=== PATIENT | female | born 1980 | race Caucasian/White ===

== ENCOUNTER 2016-12-12 20:04 | Emergency (ER) | payer MEDICAID ==
[~2016-12-12] VITALS: Ht 160 cm; Wt 150.5 kg
[~2016-12-12 20:04] MED LIST: ALPR0.25 PO; ALPR0.254 PO; AMOX1TAB64 PO; CARAFATE PO; FLUT15.88 NAS; FLUTICASONE INH; HYDR-3240 PO; HYDR-882 PO; HYDR473S51 PO; LISI-170 PO; LISI40TA PO; OMEG1CAP6 PO; OMEP40CA6 PO; ONDA4TAB10 PO; ONDA4TAB7 PO; OXYC-302 PO; POLY17PO5 PO; PROM12.553 RC; PROM25TA10 PO; SERT100T5 PO; SULF1TAB24 PO; SUMA100T4 PO; TOPI100T24 PO; TOPI100T94 PO; TRAM50TA2 PO; TRAZ300T2 PO; VENL150C6 PO; ZOLP5TAB6 PO
[2016-12-12] MEDS ORDERED: SODIUM CHLORIDE FLUSH 10ML SYR IVF ONE (20:30)
[2016-12-12] MEDS ORDERED: METOCLOPRAMIDE 5 MG/ML, 2ML IVPush ONE (20:30)
[2016-12-12] MEDS ORDERED: SODIUM CHLORIDE 0.9% 1,000ML IVBOLUS ONE (20:30)
[2016-12-12] MEDS ORDERED: DIPHENHYDRAMINE 50 MG/ML, 1ML IVPush ONE ×3 (20:30→21:30)
[2016-12-12] MEDS ORDERED: KETOROLAC 30 MG/1 ML IVPush ONE (20:30)
[2016-12-12 20:45] LABS: HEMOGLOBIN 13.7 g/dL (11.7-16.4)
[2016-12-12] MEDS ORDERED: DIPHENHYDRAMINE 50 MG/ML, 1ML ONE (20:49)
[2016-12-12] MEDS ORDERED: KETOROLAC 30 MG/1 ML ONE (20:49)
[2016-12-12] MEDS ORDERED: METOCLOPRAMIDE 5 MG/ML, 2ML ONE (20:49)
[2016-12-12 21:01] LABS: BLOOD UREA NITROGEN 7 mg/dL (7-18)
[2016-12-12 22:47] VITALS: BP 127/78
== END 2016-12-12 22:49 | disposition home or self-care (01) ==
LOC: ED 22:15
DX: G43.909 Migraine, unspecified, not intractable, without status migrainosus (principal); E78.5 Hyperlipidemia, unspecified; E66.01 Morbid (severe) obesity due to excess calories; K21.9 Gastro-esophageal reflux disease without esophagitis; I10 Essential (primary) hypertension; Z90.49 Acquired absence of other specified parts of digestive tract; Z87.440 Personal history of urinary (tract) infections; Z90.710 Acquired absence of both cervix and uterus; Z98.51 Tubal ligation status
CPT/HCPCS: 36415; 80048; 82040; 85025; 96361; 96374; 96375; 99284; J1200; J1885; J2765; J7030

== ENCOUNTER 2017-02-15 15:15 | Emergency (ER) | payer MEDICAID ==
[~2017-02-15] VITALS: Ht 160 cm; Wt 148.9 kg
[2017-02-15 15:17] VITALS: BP 136/88
[2017-02-15] MEDS ORDERED: LIDOCAINE 1%, 20ML ONE (16:15)
[2017-02-15] MEDS ORDERED: LIDOCAINE 1%, 20ML SQ ONE (16:30)
== END 2017-02-15 17:11 | disposition home or self-care (01) ==
LOC: ED 15:49
DX: L02.611 Cutaneous abscess of right foot (principal); S90.851A Superficial foreign body, right foot, initial encounter; I10 Essential (primary) hypertension; Z90.49 Acquired absence of other specified parts of digestive tract; Z90.710 Acquired absence of both cervix and uterus; Y92.481 Parking lot as the place of occurrence of the external cause; G43.909 Migraine, unspecified, not intractable, without status migrainosus; E78.5 Hyperlipidemia, unspecified; X58.XXXA Exposure to other specified factors, initial encounter; Y93.89 Activity, other specified; Y99.8 Other external cause status; Y92.89 Other specified places as the place of occurrence of the external cause; Z90.89 Acquired absence of other organs
CPT/HCPCS: 10120

== ENCOUNTER 2017-02-28 15:37 | Emergency (ER) | payer MEDICAID ==
[~2017-02-28] VITALS: Ht 160 cm; Wt 151.0 kg
[2017-02-28 15:40] VITALS: BP 143/106
== END 2017-02-28 17:08 | disposition home or self-care (01) ==
LOC: ED 17:02
DX: G89.11 Acute pain due to trauma (principal); M79.671 Pain in right foot; E66.01 Morbid (severe) obesity due to excess calories; E78.5 Hyperlipidemia, unspecified; M54.12 Radiculopathy, cervical region; I10 Essential (primary) hypertension; Z90.49 Acquired absence of other specified parts of digestive tract; Z90.710 Acquired absence of both cervix and uterus; Z98.51 Tubal ligation status

== ENCOUNTER 2017-11-19 17:51 | Emergency (ER) | payer MEDICAID ==
[~2017-11-19] VITALS: Ht 162.6 cm; Wt 160.8 kg
[~2017-11-19 17:51] MED LIST changes: +TOPI100T8 PO; -TOPI100T94 PO
[2017-11-19 18:50] LABS: BASOPHILS # (AUTO) 0.05 x10^3/uL (0-0.1); BASOPHILS % (AUTO) 1 % (0-1); EOSINOPHILS # (AUTO) 0.03 x10^3/uL (0-0.4); EOSINOPHILS % (AUTO) 0 % (1-7); LYMPHOCYTES # (AUTO) 1.81 x10^3/uL (1-3.4); LYMPHOCYTES % (AUTO) 16 % (22-44); MD NO; MEAN CORPUSCULAR HEMOGLOBIN 30.2 pg (27.0-34.8); MEAN CORPUSCULAR HGB CONC 33.8 g/dL (32.4-35.8); MEAN CORPUSCULAR VOLUME 89.4 fL (80-100); MEAN PLATELET VOLUME 9.3 fL (7.4-10.4); MONOCYTES # (AUTO) 0.54 x10^3/uL (0.2-0.8); MONOCYTES % (AUTO) 5 % (2-9); NEUTROPHILS # (AUTO) 8.56 x10^3/uL (1.8-6.8); NEUTROPHILS % (AUTO) 78 % (42-75); PLATELET COUNT 226 x10^3/uL (130-400); RED BLOOD COUNT 4.36 x10^6/uL (3.82-5.3); RED CELL DISTRIBUTION WIDTH 13.9 % (9.6-15.2)
[2017-11-19 18:58] LABS: ALANINE AMINOTRANSFERASE 30 U/L (12-78); ALBUMIN 3.6 g/dL (3.4-5.0); ANION GAP 5 mmol/L (5-15); CALCIUM 8.4 mg/dL (8.5-10.1); CHLORIDE 104 mmol/L (98-107); CREATININE 0.95 mg/dL (0.55-1.02)
[2017-11-19 19:00] LABS: ALKALINE PHOSPHATASE 94 U/L (45-117); BILIRUBIN,TOTAL 0.4 mg/dL (0.2-1.0); TOTAL PROTEIN 8.4 g/dL (6.4-8.2)
[2017-11-19 20:51] LABS: CULTURE INDICATED? YES; MICROSCOPIC INDICATED
[2017-11-19 21:30] VITALS: BP 139/89
== END 2017-11-19 21:48 | disposition home or self-care (01) ==
LOC: ED 19:40
DX: N30.01 Acute cystitis with hematuria (principal); Z90.710 Acquired absence of both cervix and uterus; Z90.49 Acquired absence of other specified parts of digestive tract; G43.909 Migraine, unspecified, not intractable, without status migrainosus; E66.01 Morbid (severe) obesity due to excess calories; Z68.44 Body mass index [BMI] 60.0-69.9, adult; E78.5 Hyperlipidemia, unspecified; I10 Essential (primary) hypertension; K21.9 Gastro-esophageal reflux disease without esophagitis; K43.9 Ventral hernia without obstruction or gangrene; M54.12 Radiculopathy, cervical region
CPT/HCPCS: 36415; 74176; 80053; 81001; 85025; 87077; 87086; 87186; 99285

== ENCOUNTER → 2018-01-16 | Outpatient (CLI) | payer MEDICAID ==
[~2018-01-16] MED LIST changes: +BUPR-173 PO; +ESZO3TAB28 PO
[2018-01-16 15:01] LABS: ALANINE AMINOTRANSFERASE 33 U/L (12-78); ALBUMIN 3.7 g/dL (3.4-5.0); ANION GAP 7 mmol/L (5-15); CALCIUM 8.9 mg/dL (8.5-10.1); CHLORIDE 104 mmol/L (98-107)
[2018-01-16 15:04] LABS: ALKALINE PHOSPHATASE 84 U/L (45-117); BILIRUBIN,TOTAL 0.5 mg/dL (0.2-1.0); CREATININE 0.98 mg/dL (0.55-1.02); TOTAL PROTEIN 8.4 g/dL (6.4-8.2)
== END | disposition home or self-care (01) ==
LOC: STAR 13:55
PROVIDERS: ATTEND Surgery
DX: Z01.818 Encounter for other preprocedural examination (principal); K43.2 Incisional hernia without obstruction or gangrene
CPT/HCPCS: 36415; 80053

== ENCOUNTER 2018-01-28 08:28 | Day surgery (SDC) | payer MEDICAID ==
[~2018-01-28] VITALS: Ht 162.6 cm; Wt 159.7 kg
[2018-01-28] MEDS ORDERED: LACTATED RINGERS 1,000 ML IV SCH (08:47)
[2018-01-28 08:59] VITALS: BP 102/70
[2018-01-28] MEDS ORDERED: ACETAMINOPHEN 500 MG TABLET PO ONE (09:00)
[2018-01-28] MEDS ORDERED: GABAPENTIN 300 MG CAPSULE PO ONE (09:00)
[2018-01-28] MEDS ORDERED: FAMOTIDINE 20 MG TABLET PO ONE (09:00)
[2018-01-28] MEDS ORDERED: SCOPOLAMINE PATCH, 1.5MG PATCH.TD72 TD ONE (09:00)
[2018-01-28] MEDS ORDERED: ONDANSETRON ODT 8 MG PO ONE (09:00)
[2018-01-28] MEDS ORDERED: OXYcodone IR 5MG TABLET PO ONE (09:00)
[2018-01-28] MEDS ORDERED: MIDAZOLAM 1 MG/ML, 2ML ONE (09:36)
[2018-01-28] MEDS ORDERED: FENTANYL PF 100 MCG/2ML ONE (09:36)
[2018-01-28] MEDS ORDERED: BUPIVACAINE/PF 0.5% ONE (10:00)
[2018-01-28] MEDS ORDERED: EPINEPHRINE 1 MG/ML, 1ML ONE (10:00)
[2018-01-28] MEDS ORDERED: CEFAZOLIN 1,000 MG ONE (10:16)
[2018-01-28] MEDS ORDERED: PROPOFOL 10 MG/ML, 20ML ONE (10:16)
[2018-01-28] MEDS ORDERED: DEXAMETHASONE 4 MG/ML, 1ML ONE (10:16)
[2018-01-28] MEDS ORDERED: ROCURONIUM 10 MG/ML,10ML ONE (10:16)
[2018-01-28] MEDS ORDERED: SUCCINYLCHOLINE 20 MG/ML, 10ML ONE (10:16)
[2018-01-28] MEDS ORDERED: NEOSTIGMINE 1 MG/ML, 10ML ONE (10:16)
[2018-01-28] MEDS ORDERED: GLYCOPYRROLATE 0.2MG/1ML, 5ML ONE (10:16)
[2018-01-28] MEDS ORDERED: EPHEDRINE 50 MG/ML, 1ML IVPush PRN (11:30)
[2018-01-28] MEDS ORDERED: ALBUTEROL SULFATE 2.5 MG/3 ML NPPB PRN (11:30)
[2018-01-28] MEDS ORDERED: DIAZEPAM 5 MG/ML, 2ML IVPush PRN (11:30)
[2018-01-28] MEDS ORDERED: hydrALAzine 20 MG/ML, 1ML IV PRN (11:30)
[2018-01-28] MEDS ORDERED: OXYcodone 5 MG/5 ML ORAL.SOL UDC PO PRN ×2 (11:30→12:00)
[2018-01-28] MEDS ORDERED: HYDROcodone/APAP 7.5-325MG/15ML UDC PO PRN (11:30)
[2018-01-28] MEDS ORDERED: FENTANYL PF 100 MCG/2ML IV PRN (11:30)
[2018-01-28] MEDS ORDERED: MIDAZOLAM 1 MG/ML, 2ML IV PRN (11:30)
[2018-01-28] MEDS ORDERED: MORPHINE SULFATE 4 MG/ML, 1ML IVPush PRN (11:30)
[2018-01-28] MEDS ORDERED: PROMETHAZINE 25 MG/ML, 1ML IV PRN (11:30)
[2018-01-28] MEDS ORDERED: METOPROLOL 1 MG/ML, 5ML IV PRN (11:30)
[2018-01-28] MEDS ORDERED: LABETALOL 5MG/ML, 20ML IV PRN (11:30)
[2018-01-28] MEDS ORDERED: morphine SULFATE 10 MG/ML, 1ML IVPush PRN (12:00)
[2018-01-28] MEDS: MEPERIDINE/PF 25MG/0.5ML IVPush PRN ×2 (12:12→12:38)
[2018-01-28] MEDS ORDERED: MEPERIDINE/PF 25MG/0.5ML ONE (12:16)
[2018-01-28] MEDS ORDERED: OXYcodone 5 MG/5 ML ORAL.SOL UDC ONE ×2 (12:48→17:07)
== END 2018-01-28 17:30 ==
LOC: OUT 08:28
PROVIDERS: ATTEND Surgery
DX: K43.2 Incisional hernia without obstruction or gangrene (principal); K44.9 Diaphragmatic hernia without obstruction or gangrene; I10 Essential (primary) hypertension; E66.9 Obesity, unspecified; Z98.890 Other specified postprocedural states
CPT/HCPCS: 49654; J0171; J0330; J0690; J1100; J2175; J2250; J2704; J2710; J3010; J3490; J7120; Q0162; S2900; C1781

== ENCOUNTER → 2018-05-20 | Outpatient (CLI) | payer MEDICAID ==
[~2018-05-20] MED LIST changes: +AZIT250T PO; +BUPR300T4 PO; +CEFD300C37 PO; +GUAI5SYR PO; +LEVO100T PO; +LEVO100T5 PO; +PROP60TA PO
[2018-05-20 14:02] LABS: ALANINE AMINOTRANSFERASE 37 U/L (12-78); ALBUMIN 3.6 g/dL (3.4-5.0); ANION GAP 6 mmol/L (5-15); CALCIUM 9.1 mg/dL (8.5-10.1); CHLORIDE 108 mmol/L (98-107); CREATININE 0.91 mg/dL (0.55-1.02)
[2018-05-20 14:04] LABS: ALKALINE PHOSPHATASE 79 U/L (45-117); BILIRUBIN,TOTAL 0.2 mg/dL (0.2-1.0)
== END | disposition home or self-care (01) ==
LOC: STAR 12:52
PROVIDERS: ATTEND Obstetrics & Gynecology Female Pelvic Medicine and Reconstructive Surgery
DX: Z01.818 Encounter for other preprocedural examination (principal); N39.3 Stress incontinence (female) (male); N81.10 Cystocele, unspecified; N81.6 Rectocele; R10.2 Pelvic and perineal pain
CPT/HCPCS: 36415; 80053

== ENCOUNTER → 2018-11-30 | Outpatient (CLI) | payer MEDICAID ==
[~2018-11-30] MED LIST changes: +HYDR-3653 PO; -HYDR-882 PO; +SERT100T32 PO; -SERT100T5 PO
== END | disposition home or self-care (01) ==
LOC: RAD 07:45
PROVIDERS: ATTEND Surgery
DX: R10.9 Unspecified abdominal pain (principal); R13.10 Dysphagia, unspecified; R14.0 Abdominal distension (gaseous)
CPT/HCPCS: 74250

== ENCOUNTER 2018-12-20 07:59 | Emergency (ER) | payer MEDICAID ==
[~2018-12-20] VITALS: Ht 162.6 cm; Wt 151.8 kg
[2018-12-20 08:05] VITALS: BP 149/99
[2018-12-20] MEDS ORDERED: KETOROLAC 30 MG/1 ML ONE (08:24)
--- NOTE | 2018-12-20 08:29 | NUR ---
Pt medicated as per emar for 1010 dental pain.
[2018-12-20] MEDS ORDERED: KETOROLAC 30 MG/1 ML IM ONE (08:30)
--- NOTE | 2018-12-20 08:42 | NUR ---
Patient given discharge instructions and they have confirmed that they understand the instructions. Patient ambulatory with steady gait.
== END 2018-12-20 08:49 | disposition home or self-care (01) ==
LOC: ED 08:11
DX: K08.89 Other specified disorders of teeth and supporting structures (principal); K21.9 Gastro-esophageal reflux disease without esophagitis; G43.909 Migraine, unspecified, not intractable, without status migrainosus; I10 Essential (primary) hypertension; E78.5 Hyperlipidemia, unspecified; E66.01 Morbid (severe) obesity due to excess calories; Z68.43 Body mass index [BMI] 50.0-59.9, adult
CPT/HCPCS: 96372; 99283; J1885

== ENCOUNTER 2019-01-15 21:37 | Emergency (ER) | payer MEDICAID ==
[~2019-01-15] VITALS: Ht 162.6 cm; Wt 151.8 kg
[2019-01-15] MEDS ORDERED: ONDANSETRON ODT 8 MG PO STA (22:03)
[2019-01-15 22:38] LABS: BASOPHILS # (AUTO) 0.02 x10^3/uL (0-0.1); BASOPHILS % (AUTO) 0 % (0-1); EOSINOPHILS # (AUTO) 0.07 x10^3/uL (0-0.4); EOSINOPHILS % (AUTO) 1 % (1-7); LYMPHOCYTES # (AUTO) 1.08 x10^3/uL (1-3.4); LYMPHOCYTES % (AUTO) 15 % (22-44); MD NO; MEAN CORPUSCULAR HEMOGLOBIN 30.2 pg (27.0-34.8); MEAN CORPUSCULAR HGB CONC 33.8 g/dL (32.4-35.8); MEAN CORPUSCULAR VOLUME 89.4 fL (80-100); MEAN PLATELET VOLUME 10.3 fL (7.4-10.4); MONOCYTES % (AUTO) 4 % (2-9); NEUTROPHILS # (AUTO) 5.54 x10^3/uL (1.8-6.8); NEUTROPHILS % (AUTO) 79 % (42-75); PLATELET COUNT 206 x10^3/uL (130-400); RED CELL DISTRIBUTION WIDTH 13.1 % (9.6-15.2)
[2019-01-15] MEDS ORDERED: ONDANSETRON ODT 8 MG ONE (22:38)
--- NOTE | 2019-01-15 22:45 | NUR ---
FIRST CONTACT WITH PT. PT C/O N/V ALL DAY, HYAD TEETH PULLED YESTERDAY, UNABLE TO KEEP PAIN MEDS DOWN INSPITE OF NAUSEA MED. PT C/O MOUSE PAIN WELL. BP/SPO2 MONITORS IN PLACE. CALL LIGHT WITHIN REACH. EDMD AT BEDSIDE TO ASSESS AT THIS TIME.
[2019-01-15 22:49] LABS: ALANINE AMINOTRANSFERASE 22 U/L (12-78); ALBUMIN 3.9 g/dL (3.4-5.0); ANION GAP 3 mmol/L (5-15); CALCIUM 8.8 mg/dL (8.5-10.1); CHLORIDE 106 mmol/L (98-107); CREATININE 0.82 mg/dL (0.55-1.02)
--- NOTE | 2019-01-15 22:54 | NUR ---
PT MEDICATED PER EMAR FOR NAUSEA. PT TOLERATED WELL.
[2019-01-15 22:55] LABS: ALKALINE PHOSPHATASE 75 U/L (45-117); BILIRUBIN,TOTAL 0.4 mg/dL (0.2-1.0)
--- NOTE | 2019-01-15 22:59 | NUR ---
PT WAS NOT ABLE TO PROVIDE URINE SAMPLE AT THIS TIME. URINE CUP AT BEDSIDE.
[2019-01-15] MEDS ORDERED: PROMETHAZINE 25 MG/ML, 1ML IM PRN (23:00)
[2019-01-15] MEDS ORDERED: OXYcodone/APAP 5/325MG TABLET PO ONE (23:00)
[2019-01-15] MEDS ORDERED: OXYcodone/APAP 5/325MG TABLET ONE (23:11)
--- NOTE | 2019-01-15 23:14 | NUR ---
PT MEDICATED PER EMAR FOR PAIN. PT TOLERATED WELL.
--- NOTE | 2019-01-15 23:37 | NUR ---
PT'S PAIN LEVEL IS 5/10 AT THIS TIME. PT STATES NO N/V NOW. PT WAS NOT ABLE TO PROVIDE URINE SAMPLE STILL.
[2019-01-16 00:13] VITALS: BP 145/91
--- NOTE | 2019-01-16 00:14 | NUR ---
BREAK RN: PT REFUSES TO GIVE UA. VS STABLE. WILL CONTINUE TO MONITOR WHILE PRIMARY RN IS ON BREAK.
== END 2019-01-16 00:27 | disposition home or self-care (01) ==
LOC: ED 01-16 00:21
DX: R11.2 Nausea with vomiting, unspecified (principal); R51 Headache; K21.9 Gastro-esophageal reflux disease without esophagitis; I10 Essential (primary) hypertension; E78.5 Hyperlipidemia, unspecified; E66.01 Morbid (severe) obesity due to excess calories; Z68.43 Body mass index [BMI] 50.0-59.9, adult
CPT/HCPCS: 36415; 80053; 83690; 84702; 85025; 99283; Q0162

== ENCOUNTER 2019-02-03 07:58 | Outpatient (CLI) | payer MEDICAID | END 2019-02-03 23:59 | disposition home or self-care (01) | LOC: STAR 07:58 | PROVIDERS: ATTEND Surgery | DX: Z02.9 Encounter for administrative examinations, unspecified (principal) ==

== ENCOUNTER 2019-02-16 10:31 | Day surgery (SDC) | payer MEDICAID ==
[~2019-02-16] VITALS: Ht 162.6 cm; Wt 141.8 kg
[2019-02-16] MEDS ORDERED: LACTATED RINGERS 1,000 ML IV SCH (10:50)
[2019-02-16] MEDS ORDERED: SCOPOLAMINE PATCH, 1.5MG PATCH.TD72 TD ONE (11:00)
[2019-02-16] MEDS ORDERED: GABAPENTIN 300 MG CAPSULE PO ONE (11:00)
[2019-02-16] MEDS ORDERED: ACETAMINOPHEN 500 MG TABLET PO ONE (11:00)
[2019-02-16 11:06] VITALS: BP 137/85
[2019-02-16] MEDS ORDERED: BUPIVACAINE/EPI 0.5% 1:200K ONE (12:33)
[2019-02-16] MEDS ORDERED: MIDAZOLAM 1 MG/ML, 2ML ONE (12:50)
[2019-02-16] MEDS ORDERED: FENTANYL PF 250 MCG/5ML ONE (12:50)
[2019-02-16] MEDS ORDERED: HYDROmorphone 2 MG/ML, 1ML IVPush PRN (13:00)
[2019-02-16] MEDS ORDERED: HALOPERIDOL 5 MG/ML IV PRN ×2 (13:00)
[2019-02-16] MEDS ORDERED: DIPHENHYDRAMINE 50 MG/ML, 1ML IVPush PRN (13:00)
[2019-02-16] MEDS ORDERED: FENTANYL PF 100 MCG/2ML IV PRN (13:00)
[2019-02-16] MEDS ORDERED: hydrALAzine 20 MG/ML, 1ML IV PRN (13:00)
[2019-02-16] MEDS ORDERED: METOPROLOL 1 MG/ML, 5ML IV PRN (13:00)
[2019-02-16] MEDS ORDERED: OXYcodone 5 MG/5 ML ORAL.SOL UDC PO PRN (13:00)
[2019-02-16] MEDS ORDERED: PROCHLORPERAZINE 5 MG/ML, 2ML IV PRN ×2 (13:00)
[2019-02-16] MEDS ORDERED: LABETALOL 5MG/ML, 20ML IV PRN (13:00)
[2019-02-16] MEDS ORDERED: MEPERIDINE/PF 25MG/0.5ML IVPush PRN (13:00)
[2019-02-16] MEDS ORDERED: ROCURONIUM 10MG/ML,5ML ONE (14:58)
[2019-02-16] MEDS ORDERED: DEXAMETHASONE 4 MG/ML, 1ML ONE (14:58)
[2019-02-16] MEDS ORDERED: ONDANSETRON 2MG/ML, 2ML ONE (14:58)
[2019-02-16] MEDS ORDERED: CEFAZOLIN 1,000 MG ONE (14:58)
[2019-02-16] MEDS ORDERED: SUCCINYLCHOLINE 20 MG/ML, 10ML ONE (14:58)
[2019-02-16] MEDS ORDERED: GLYCOPYRROLATE 0.2MG/1ML, 5ML ONE (14:58)
[2019-02-16] MEDS ORDERED: NEOSTIGMINE 1 MG/ML, 10ML ONE (14:58)
[2019-02-16] MEDS ORDERED: PROPOFOL 10 MG/ML, 20ML ONE (14:58)
[2019-02-16] MEDS ORDERED: OXYcodone 5 MG/5 ML ORAL.SOL UDC ONE (15:25)
[2019-02-16] MEDS ORDERED: PROMETHAZINE 25 MG/ML, 1ML ONE (15:28)
[2019-02-16] MEDS ORDERED: ONDANSETRON 2MG/ML, 2ML IVPush PRN (15:30)
[2019-02-16] MEDS: PROMETHAZINE 25 MG/ML, 1ML IV PRN ×2 (15:30→16:02)
[2019-02-16] MEDS ORDERED: hydrALAzine 20 MG/ML, 1ML ONE (15:39)
[2019-02-16] MEDS ORDERED: HYDROmorphone 2 MG/ML, 1ML ONE (15:51)
[2019-02-16] MEDS ORDERED: MEPERIDINE/PF 25MG/ML,1ML ONE (16:05)
[2019-02-16] MEDS ORDERED: HALOPERIDOL 5 MG/ML ONE (16:15)
== END 2019-02-16 18:40 | disposition home or self-care (01) ==
LOC: OUT 10:31
PROVIDERS: ATTEND Surgery
DX: K43.2 Incisional hernia without obstruction or gangrene (principal); G47.33 Obstructive sleep apnea (adult) (pediatric); I10 Essential (primary) hypertension; E66.01 Morbid (severe) obesity due to excess calories; Z68.42 Body mass index [BMI] 45.0-49.9, adult; Z79.890 Hormone replacement therapy; Z79.899 Other long term (current) drug therapy; Z98.84 Bariatric surgery status; Z83.3 Family history of diabetes mellitus; Z82.49 Family history of ischemic heart disease and other diseases of the circulatory system
CPT/HCPCS: 49656; C1781; J0330; J0360; J0690; J1100; J1170; J1630; J2175; J2250; J2405; J2550; J2704; J2710; J3010; J7120; S2900

== ENCOUNTER 2019-02-21 15:59 | Emergency (ER) | payer MEDICAID ==
[~2019-02-21] VITALS: Ht 162.6 cm; Wt 140.3 kg
--- NOTE | 2019-02-21 16:12 | NUR ---
PT UP TO BR
--- NOTE | 2019-02-21 16:20 | NUR ---
pt presented to ed with abd pain of 10/10 with nv/ since last night. pt had hernia repair with mesh on Friday by Dr. Ceballos. pt a&ox4. pt placed in room and placed on bp and cont. pulse oximeter. assessment completed. call light in reach.
[2019-02-21] MEDS ORDERED: SODIUM CHLORIDE FLUSH 10ML SYR IVF ONE (16:30)
[2019-02-21] MEDS ORDERED: SODIUM CHLORIDE 0.9% 1,000ML IVBOLUS ONE (16:30)
[2019-02-21 16:43] LABS: BASOPHILS # (AUTO) 0.03 x10^3/uL (0-0.1); BASOPHILS % (AUTO) 0 % (0-1); EOSINOPHILS % (AUTO) 3 % (1-7); LYMPHOCYTES # (AUTO) 1.93 x10^3/uL (1-3.4); LYMPHOCYTES % (AUTO) 25 % (22-44); MD NO; MEAN CORPUSCULAR HEMOGLOBIN 29.6 pg (27.0-34.8); MEAN CORPUSCULAR HGB CONC 32.5 g/dL (32.4-35.8); MEAN PLATELET VOLUME 9.1 fL (7.4-10.4); MONOCYTES # (AUTO) 0.31 x10^3/uL (0.2-0.8); MONOCYTES % (AUTO) 4 % (2-9); NEUTROPHILS # (AUTO) 5.36 x10^3/uL (1.8-6.8); NEUTROPHILS % (AUTO) 68 % (42-75); PLATELET COUNT 232 x10^3/uL (130-400); RED BLOOD COUNT 4.45 x10^6/uL (3.82-5.3); RED CELL DISTRIBUTION WIDTH 13.7 % (9.6-15.2)
[2019-02-21 16:45] LABS: ALBUMIN 3.3 g/dL (3.4-5.0); ANION GAP 6 mmol/L (5-15); CALCIUM 8.6 mg/dL (8.5-10.1); CHLORIDE 103 mmol/L (98-107); CREATININE 0.84 mg/dL (0.55-1.02)
[2019-02-21] MEDS ORDERED: HYDROmorphone 2 MG/ML, 1ML IVPush PRN (17:30)
[2019-02-21] MEDS ORDERED: ONDANSETRON ODT 4 MG PO ONE ×2 (17:30→18:30)
[2019-02-21] MEDS ORDERED: HYDROmorphone 1 MG/ML, 1ML VIAL ONE (17:30)
[2019-02-21] MEDS ORDERED: HYDROmorphone 1 MG/ML, 1ML INJ IM ONE (17:30)
[2019-02-21] MEDS ORDERED: ONDANSETRON ODT 4 MG ONE ×2 (17:31→18:07)
[2019-02-21 17:55] VITALS: BP 129/73
--- NOTE | 2019-02-21 18:09 | NUR ---
pt started vomitting. aware and zofran 4mg odt given under tongue
== END 2019-02-21 18:30 | disposition home or self-care (01) ==
LOC: ED 18:10
DX: R10.84 Generalized abdominal pain (principal); I10 Essential (primary) hypertension; E78.5 Hyperlipidemia, unspecified; K21.9 Gastro-esophageal reflux disease without esophagitis; E66.01 Morbid (severe) obesity due to excess calories; Z68.43 Body mass index [BMI] 50.0-59.9, adult; Z90.49 Acquired absence of other specified parts of digestive tract
CPT/HCPCS: 36415; 71045; 80048; 82040; 85025; 96372; 99284; J1170; Q0162

== ENCOUNTER 2019-02-22 20:06 | Emergency (ER) | payer MEDICAID ==
[~2019-02-22] VITALS: Ht 162.6 cm; Wt 138.4 kg
[2019-02-22 20:57] LABS: BASOPHILS # (AUTO) 0.04 x10^3/uL (0-0.1); BASOPHILS % (AUTO) 0 % (0-1); EOSINOPHILS # (AUTO) 0.26 x10^3/uL (0-0.4); EOSINOPHILS % (AUTO) 3 % (1-7); LYMPHOCYTES # (AUTO) 1.54 x10^3/uL (1-3.4); LYMPHOCYTES % (AUTO) 18 % (22-44); MD NO; MEAN CORPUSCULAR HEMOGLOBIN 29.5 pg (27.0-34.8); MEAN CORPUSCULAR HGB CONC 32.2 g/dL (32.4-35.8); MEAN CORPUSCULAR VOLUME 91.8 fL (80-100); MEAN PLATELET VOLUME 9.1 fL (7.4-10.4); MONOCYTES # (AUTO) 0.39 x10^3/uL (0.2-0.8); MONOCYTES % (AUTO) 5 % (2-9); NEUTROPHILS % (AUTO) 74 % (42-75); PLATELET COUNT 263 x10^3/uL (130-400); RED BLOOD COUNT 4.63 x10^6/uL (3.82-5.3); RED CELL DISTRIBUTION WIDTH 13.5 % (9.6-15.2)
[2019-02-22 21:10] LABS: ALANINE AMINOTRANSFERASE 20 U/L (12-78); ALBUMIN 3.6 g/dL (3.4-5.0); ANION GAP 4 mmol/L (5-15); CALCIUM 8.8 mg/dL (8.5-10.1); CHLORIDE 104 mmol/L (98-107); CREATININE 0.89 mg/dL (0.55-1.02)
[2019-02-22 21:12] LABS: ALKALINE PHOSPHATASE 81 U/L (45-117); BILIRUBIN,TOTAL 0.5 mg/dL (0.2-1.0); TOTAL PROTEIN 8.2 g/dL (6.4-8.2)
--- NOTE | 2019-02-22 21:22 | NUR ---
pt to ed for abd pain since surgery on 02/16/2019. pt states had lap hernia surgey with 5 stab incisions. pt connected to monitors. vss. edmd present for assessment. awaiting orders at this time.
[2019-02-22] MEDS ORDERED: MORPHINE SULFATE 4 MG/ML, 1ML IVPush PRN (21:30)
[2019-02-22] MEDS ORDERED: PROMETHAZINE 25 MG/ML, 1ML IM ONE (21:30)
[2019-02-22] MEDS ORDERED: SODIUM CHLORIDE 0.9% 1,000ML IVBOLUS ONE (21:30)
[2019-02-22] MEDS ORDERED: METOCLOPRAMIDE 5 MG/ML, 2ML IVPush ONE (21:30)
[2019-02-22] MEDS ORDERED: SODIUM CHLORIDE FLUSH 10ML SYR IVF ONE (21:30)
[2019-02-22] MEDS ORDERED: MORPHINE SULFATE 4 MG/ML, 1ML ONE (21:51)
[2019-02-22] MEDS ORDERED: PROMETHAZINE 25 MG/ML, 1ML ONE (21:51)
[2019-02-22] MEDS ORDERED: METOCLOPRAMIDE 5 MG/ML, 2ML ONE (21:51)
[2019-02-22] MEDS ORDERED: OMNIPAQUE 350 MG/ML, 100ML BOTTLE ONE (22:00)
--- NOTE | 2019-02-22 22:14 | NUR ---
IV placed. medicated for nausea and pain. IVF hung.
--- NOTE | 2019-02-22 22:46 | NUR ---
back from CT scan. awaiting result.
--- NOTE | 2019-02-22 22:53 | NUR ---
ERP at bedside for re-evaluation.
[2019-02-22 23:17] VITALS: BP 120/69
--- NOTE | 2019-02-22 23:17 | NUR ---
patient discharged with prescriptions and instruction. verbalized understanding.
== END 2019-02-22 23:20 | disposition home or self-care (01) ==
LOC: ED 22:03
DX: R10.84 Generalized abdominal pain (principal); R11.2 Nausea with vomiting, unspecified; K21.9 Gastro-esophageal reflux disease without esophagitis; E78.5 Hyperlipidemia, unspecified; I10 Essential (primary) hypertension; Z90.49 Acquired absence of other specified parts of digestive tract
CPT/HCPCS: 36415; 74177; 80053; 84703; 85025; 96361; 96372; 96374; 96375; 99284; J2270; J2550; J2765; J7030; Q9967

== ENCOUNTER → 2019-07-28 | Outpatient (CLI) | payer MEDICAID ==
[~2019-07-28] MED LIST changes: +FLUT15.845 NAS; -FLUT15.88 NAS; +OMEP40CA42 PO; -OMEP40CA6 PO
== END | disposition home or self-care (01) ==
LOC: CFH 08:15
PROVIDERS: ATTEND Surgery
DX: K43.9 Ventral hernia without obstruction or gangrene (principal); Z90.49 Acquired absence of other specified parts of digestive tract; Z83.3 Family history of diabetes mellitus; Z82.49 Family history of ischemic heart disease and other diseases of the circulatory system; Z82.5 Family history of asthma and other chronic lower respiratory diseases
CPT/HCPCS: 74150

== ENCOUNTER 2019-09-28 16:07 | Emergency (ER) | payer MEDICAID ==
[~2019-09-28] VITALS: Ht 162.6 cm; Wt 137.2 kg
[~2019-09-28 16:07] MED LIST changes: -BUPR300T4 PO; +BUPR300T94 PO
[2019-09-28 17:29] LABS: BASOPHILS # (AUTO) 0.03 x10^3/uL (0-0.1); BASOPHILS % (AUTO) 0 % (0-1); EOSINOPHILS # (AUTO) 0.35 x10^3/uL (0-0.4); EOSINOPHILS % (AUTO) 4 % (1-7); LYMPHOCYTES # (AUTO) 1.24 x10^3/uL (1-3.4); LYMPHOCYTES % (AUTO) 14 % (22-44); MD NO; MEAN CORPUSCULAR HEMOGLOBIN 30.3 pg (27.0-34.8); MEAN CORPUSCULAR HGB CONC 33.3 g/dL (32.4-35.8); MEAN CORPUSCULAR VOLUME 91.1 fL (80-100); MEAN PLATELET VOLUME 9.3 fL (7.4-10.4); MONOCYTES # (AUTO) 0.64 x10^3/uL (0.2-0.8); MONOCYTES % (AUTO) 7 % (2-9); NEUTROPHILS # (AUTO) 6.82 x10^3/uL (1.8-6.8); NEUTROPHILS % (AUTO) 75 % (42-75); PLATELET COUNT 200 x10^3/uL (130-400); RED BLOOD COUNT 4.24 x10^6/uL (3.82-5.3)
[2019-09-28 17:37] LABS: ALBUMIN 3.3 g/dL (3.4-5.0); ANION GAP 6 mmol/L (5-15); CALCIUM 8.8 mg/dL (8.5-10.1); CHLORIDE 105 mmol/L (98-107); CREATININE 0.81 mg/dL (0.55-1.02)
[2019-09-28] MEDS ORDERED: AMLO5TAB10 PO (18:07)
[2019-09-28] MEDS ORDERED: LEVO100T5 PO (18:07)
[2019-09-28 18:12] VITALS: BP 126/84
[2019-09-28] MEDS ORDERED: ACETAMINOPHEN 325 MG TABLET ONE (18:16)
[2019-09-28] MEDS ORDERED: CEFTRIAXONE PMX 1GM/50ML 50 ML ONE (18:20)
[2019-09-28] MEDS ORDERED: AZITHROMYCIN 500 MG in SODIUM CHLORIDE 0.9% 250 ML IVPB ONE (18:30)
[2019-09-28] MEDS ORDERED: ACETAMINOPHEN 325 MG TABLET PO ONE (18:30)
[2019-09-28] MEDS ORDERED: CEFTRIAXONE PMX 1GM/50ML 50 ML IVPB ONE (18:30)
--- NOTE | 2019-09-28 18:36 | NUR ---
PIV STARTED. IV ROCEPHIN STARTED. PT RESTING WITH NO COMPLAINTS.
--- NOTE | 2019-09-28 18:53 | NUR ---
REPORT RECEIVED FROM JOSE L MORRIS.
--- NOTE | 2019-09-28 19:10 | NUR ---
IV ROCEPHIN COMPLETE. IV AZITHROMYCIN STARTED. PT RESTING WITH NO COMPLAINTS.
--- NOTE | 2019-09-28 20:05 | NUR ---
pt up in bed at this time. iv abx continuing to run. pt aware of d/c plan upon completion. pt agrees with poc.
--- NOTE | 2019-09-28 20:20 | NUR ---
Patient given discharge instructions and they have confirmed that they understand the instructions. Patient ambulatory with steady gait.
== END 2019-09-28 20:22 | disposition home or self-care (01) ==
LOC: ED 17:14
DX: J15.9 Unspecified bacterial pneumonia (principal); K21.9 Gastro-esophageal reflux disease without esophagitis; I10 Essential (primary) hypertension; E66.01 Morbid (severe) obesity due to excess calories; Z68.43 Body mass index [BMI] 50.0-59.9, adult
CPT/HCPCS: 36415; 71046; 80048; 82040; 83605; 83880; 85025; 87040; 93005; 96365; 96368; 99284; J0456; J0696; J7050

== ENCOUNTER 2019-10-10 11:52 | Emergency (ER) | payer MEDICAID ==
[~2019-10-10] VITALS: Ht 167.6 cm; Wt 133.6 kg
[~2019-10-10 11:52] MED LIST changes: +AMLO5TAB10 PO; +BUPR300T4 PO; -BUPR300T94 PO
--- NOTE | 2019-10-10 12:23 | NUR ---
pt to ed from home. hernia repair sx approx 3 wks ago. pna 1.5 wks ago, dx here in ed. home w/ abx, finished them, still feels sick. sts coughing up blood. no cough noted. lungs ctab. ekg in triage, SR. denies sob. vss. A&Ox4 gcs 15. ambulatory gait steady no MEDRANO noted. call dsouza in reach. awaiting md. as
[2019-10-10 12:53] LABS: BASOPHILS # (AUTO) 0.03 x10^3/uL (0-0.1); BASOPHILS % (AUTO) 0 % (0-1); EOSINOPHILS # (AUTO) 0.34 x10^3/uL (0-0.4); EOSINOPHILS % (AUTO) 5 % (1-7); LYMPHOCYTES # (AUTO) 1.67 x10^3/uL (1-3.4); LYMPHOCYTES % (AUTO) 25 % (22-44); MD NO; MEAN CORPUSCULAR HEMOGLOBIN 30.1 pg (27.0-34.8); MEAN CORPUSCULAR VOLUME 91.3 fL (80-100); MEAN PLATELET VOLUME 8.6 fL (7.4-10.4); MONOCYTES # (AUTO) 0.36 x10^3/uL (0.2-0.8); MONOCYTES % (AUTO) 5 % (2-9); NEUTROPHILS % (AUTO) 64 % (42-75); PLATELET COUNT 234 x10^3/uL (130-400); RED BLOOD COUNT 4.39 x10^6/uL (3.82-5.3); RED CELL DISTRIBUTION WIDTH 14.1 % (9.6-15.2)
--- NOTE | 2019-10-10 12:57 | NUR ---
RESTING IN BED AWAITING LAB RESTULS.
[2019-10-10 13:04] LABS: D-DIMER 0.85 ug/mlFEU (0.00-0.52); INTERNATIONAL NORMALIZED RATIO 1.06 (0.93-1.1); PROTHROMBIN TIME 11.2 Seconds (9.6-11.5)
[2019-10-10 13:06] LABS: ALANINE AMINOTRANSFERASE 53 U/L (12-78); ALBUMIN 3.7 g/dL (3.4-5.0); ANION GAP 7 mmol/L (5-15); CALCIUM 8.8 mg/dL (8.5-10.1); CHLORIDE 106 mmol/L (98-107); CREATININE 0.83 mg/dL (0.55-1.02)
[2019-10-10 13:10] LABS: ALKALINE PHOSPHATASE 73 U/L (45-117); BILIRUBIN,TOTAL 0.6 mg/dL (0.2-1.0)
--- NOTE | 2019-10-10 13:50 | NUR ---
D DIMER POSITIVE PLAN FOR CTA PIV EST DR MATUTE WAS IN ROOM FOR UPDATE. CALLBELL IN REACH.
--- NOTE | 2019-10-10 14:57 | NUR ---
PT TO CT. REPORT TO KEZIA MORRIS.
--- NOTE | 2019-10-10 15:01 | NUR ---
REPORT FROM ALEXANDRA ZAFAR. PT IN CT
[2019-10-10] MEDS ORDERED: OMNIPAQUE 350 MG/ML, 100ML BOTTLE ONE (15:09)
--- NOTE | 2019-10-10 16:07 | NUR ---
POC IS DC. IV DC'D. PT UP TO DRESS SELF. AWAITING DC INSTRUCTIONS.
[2019-10-10 16:08] VITALS: BP 136/90
--- NOTE | 2019-10-10 16:29 | NUR ---
DC EDUCATION PROVIDED, PT DEMONSTRATES UNDERSTANDING. PT AMBULATED STEADILY TO DC WITH RN
== END 2019-10-10 16:31 | disposition home or self-care (01) ==
LOC: ED 12:12
DX: J18.1 Lobar pneumonia, unspecified organism (principal); K21.9 Gastro-esophageal reflux disease without esophagitis; E78.5 Hyperlipidemia, unspecified; I10 Essential (primary) hypertension; E66.01 Morbid (severe) obesity due to excess calories; Z68.42 Body mass index [BMI] 45.0-49.9, adult; Z90.49 Acquired absence of other specified parts of digestive tract; Z90.710 Acquired absence of both cervix and uterus; Z98.51 Tubal ligation status
CPT/HCPCS: 36415; 71045; 71275; 80053; 83880; 84145; 85025; 85379; 85610; 85730; 93005; 99284; Q9967

== ENCOUNTER 2020-04-06 08:24 | Outpatient (CLI) | payer MEDICAID ==
[~2020-04-06 08:24] MED LIST changes: -BUPR300T4 PO; +BUPR300T94 PO
== END 2020-04-06 23:59 | disposition home or self-care (01) ==
LOC: CVU 08:24
PROVIDERS: ATTEND Internal Medicine Cardiovascular Disease
DX: I65.23 Occlusion and stenosis of bilateral carotid arteries (principal); G43.909 Migraine, unspecified, not intractable, without status migrainosus
CPT/HCPCS: 93880

== ENCOUNTER → 2020-04-13 | Outpatient (CLI) | payer MEDICAID ==
[~2020-04-13] MED LIST changes: +OMNIPAQUE 350 MG/ML, 100ML BOTTLE ONE
== END | disposition home or self-care (01) ==
LOC: CFH 09:05
PROVIDERS: ATTEND Surgery
DX: K43.9 Ventral hernia without obstruction or gangrene (principal); K43.2 Incisional hernia without obstruction or gangrene
CPT/HCPCS: 74177; Q9967

== ENCOUNTER 2020-06-07 20:45 | Emergency (ER) | payer MEDICAID ==
[~2020-06-07] VITALS: Ht 162.6 cm; Wt 119.0 kg
[~2020-06-07 20:45] MED LIST changes: -OMNIPAQUE 350 MG/ML, 100ML BOTTLE ONE
--- NOTE | 2020-06-07 21:10 | NUR ---
CODING VALIDATOR: PT. TO ROOM FROM LOBBY AT THIS TIME.
--- NOTE | 2020-06-07 21:20 | NUR ---
First contact with patient: pateint presents to ER c/o dizziness and low BP. Patient states she was taken off all of her BP meds because her BP has been low, going all the way down in the 60s systolic at times. Patient c/o dizziness x1 week and multiple falls due to the dizziness. Patient also has low back pain which radiates down right leg. Patient is in NAD. REspirations even and unlabored.
[2020-06-07 22:17] LABS: BASOPHILS # (AUTO) 0.02 x10^3/uL (0-0.1); BASOPHILS % (AUTO) 0 % (0-1); EOSINOPHILS # (AUTO) 0.11 x10^3/uL (0-0.4); EOSINOPHILS % (AUTO) 2 % (1-7); LYMPHOCYTES # (AUTO) 1.91 x10^3/uL (1-3.4); LYMPHOCYTES % (AUTO) 35 % (22-44); MD NO; MEAN CORPUSCULAR HEMOGLOBIN 29.7 pg (27.0-34.8); MEAN CORPUSCULAR HGB CONC 32.1 g/dL (32.4-35.8); MEAN PLATELET VOLUME 10.5 fL (7.4-10.4); MONOCYTES # (AUTO) 0.38 x10^3/uL (0.2-0.8); MONOCYTES % (AUTO) 7 % (2-9); NEUTROPHILS # (AUTO) 3.03 x10^3/uL (1.8-6.8); NEUTROPHILS % (AUTO) 56 % (42-75); PLATELET COUNT 178 x10^3/uL (130-400); RED BLOOD COUNT 4.03 x10^6/uL (3.82-5.3); RED CELL DISTRIBUTION WIDTH 14.5 % (9.6-15.2)
[2020-06-07 22:39] VITALS: BP 93/67
[2020-06-07 22:51] LABS: ALBUMIN 3.4 g/dL (3.4-5.0); CALCIUM 8.2 mg/dL (8.5-10.1); CREATININE 0.64 mg/dL (0.55-1.02)
[2020-06-07 23:31] LABS: ALANINE AMINOTRANSFERASE 15 U/L (12-78); ALKALINE PHOSPHATASE 65 U/L (45-117); ANION GAP 6 mmol/L (5-15); CHLORIDE 110 mmol/L (98-107); TOTAL PROTEIN 6.8 g/dL (6.4-8.2); TROPONIN I < 0.015 ng/mL (0.000-0.045)
[2020-06-07 23:35] LABS: BILIRUBIN,TOTAL 0.4 mg/dL (0.2-1.0)
== END 2020-06-08 00:30 | disposition home or self-care (01) ==
LOC: ED 21:15
DX: R55 Syncope and collapse (principal); R42 Dizziness and giddiness; M54.9 Dorsalgia, unspecified; R07.9 Chest pain, unspecified; R94.31 Abnormal electrocardiogram [ECG] [EKG]; I10 Essential (primary) hypertension; K21.9 Gastro-esophageal reflux disease without esophagitis; E78.5 Hyperlipidemia, unspecified; Z90.89 Acquired absence of other organs; Z90.49 Acquired absence of other specified parts of digestive tract; Z90.710 Acquired absence of both cervix and uterus
CPT/HCPCS: 36415; 71045; 80053; 83880; 84484; 84703; 85025; 93005; 99285

== ENCOUNTER 2020-07-20 18:00 | Emergency (ER) | payer MEDICAID ==
[~2020-07-20] VITALS: Ht 162.6 cm; Wt 111.9 kg
[~2020-07-20 18:00] MED LIST changes: +AMLO-210 PO; -AMLO5TAB10 PO
[2020-07-20 18:14] VITALS: BP 120/80
--- NOTE | 2020-07-20 18:18 | NUR ---
EKG DONE IN TRIAGE
--- NOTE | 2020-07-20 18:37 | NUR ---
LAB CALLED PT X 1 NO ANSWER
[2020-07-20 19:00] LABS: BASOPHILS % (AUTO) 0 % (0-1); EOSINOPHILS % (AUTO) 6 % (1-7); LYMPHOCYTES % (AUTO) 27 % (22-44); MEAN CORPUSCULAR HEMOGLOBIN 29.3 pg (27.0-34.8); MEAN CORPUSCULAR HGB CONC 32.1 g/dL (32.4-35.8); MEAN PLATELET VOLUME 9.3 fL (7.4-10.4); MONOCYTES % (AUTO) 7 % (2-9); NEUTROPHILS % (AUTO) 60 % (42-75); PLATELET COUNT 242 x10^3/uL (130-400); RED BLOOD COUNT 4.53 x10^6/uL (3.82-5.3); RED CELL DISTRIBUTION WIDTH 13.3 % (9.6-15.2)
[2020-07-20 19:02] LABS: MD NO
[2020-07-20 19:12] LABS: ALANINE AMINOTRANSFERASE 15 U/L (12-78); ALBUMIN 3.1 g/dL (3.4-5.0); ANION GAP 3 mmol/L (5-15); CALCIUM 8.4 mg/dL (8.5-10.1); CHLORIDE 107 mmol/L (98-107)
[2020-07-20 19:16] LABS: ALKALINE PHOSPHATASE 69 U/L (45-117); BILIRUBIN,TOTAL 0.4 mg/dL (0.2-1.0); TOTAL PROTEIN 7.7 g/dL (6.4-8.2)
--- NOTE | 2020-07-20 20:05 | NUR ---
PT ELOPED PER REGISTRATION. JAED AGAIN FROM LOBBY, NO ANSWER.
== END 2020-07-20 20:25 | disposition home or self-care (01) ==
LOC: ED 20:19
DX: R06.00 Dyspnea, unspecified (principal); R10.9 Unspecified abdominal pain; R94.31 Abnormal electrocardiogram [ECG] [EKG]
CPT/HCPCS: 36415; 71045; 80053; 84703; 85025; 93005; 99285

== ENCOUNTER 2020-07-25 13:00 | Emergency (ER) | payer MEDICAID ==
[~2020-07-25] VITALS: Ht 162.6 cm; Wt 108.9 kg
[2020-07-25] MEDS ORDERED: ONDANSETRON ODT 4 MG PO ONE (13:30)
[2020-07-25 13:38] LABS: BASOPHILS % (AUTO) 0 % (0-1); EOSINOPHILS % (AUTO) 3 % (1-7); LYMPHOCYTES % (AUTO) 19 % (22-44); MEAN CORPUSCULAR HEMOGLOBIN 29.3 pg (27.0-34.8); MEAN CORPUSCULAR HGB CONC 32.6 g/dL (32.4-35.8); MEAN PLATELET VOLUME 9.1 fL (7.4-10.4); MONOCYTES % (AUTO) 5 % (2-9); NEUTROPHILS % (AUTO) 73 % (42-75); PLATELET COUNT 210 x10^3/uL (130-400); RED BLOOD COUNT 4.57 x10^6/uL (3.82-5.3); RED CELL DISTRIBUTION WIDTH 12.7 % (9.6-15.2)
[2020-07-25 13:47] LABS: MD NO
[2020-07-25 13:49] LABS: ALANINE AMINOTRANSFERASE 15 U/L (12-78); ALBUMIN 3.3 g/dL (3.4-5.0); ANION GAP 5 mmol/L (5-15); CALCIUM 8.7 mg/dL (8.5-10.1); CHLORIDE 106 mmol/L (98-107); CREATININE 0.66 mg/dL (0.55-1.02)
[2020-07-25 13:54] LABS: ALKALINE PHOSPHATASE 75 U/L (45-117); BILIRUBIN,TOTAL 0.5 mg/dL (0.2-1.0); TOTAL PROTEIN 8.1 g/dL (6.4-8.2)
--- NOTE | 2020-07-25 16:24 | NUR ---
pt walked to room. as
[2020-07-25] MEDS ORDERED: ONDANSETRON ODT 4 MG ONE (16:38)
[2020-07-25 16:44] VITALS: BP 120/80
== END 2020-07-25 17:16 | disposition home or self-care (01) ==
LOC: ED 17:04
DX: R11.2 Nausea with vomiting, unspecified (principal); R10.9 Unspecified abdominal pain
CPT/HCPCS: 36415; 74021; 80053; 83690; 84703; 85025; 99284; Q0162

== ENCOUNTER 2020-09-10 14:01 | Emergency (ER) | payer MEDICAID ==
[~2020-09-10] VITALS: Ht 162.6 cm; Wt 110.6 kg
[2020-09-10] MEDS ORDERED: KETOROLAC 30 MG/1 ML ONE (14:55)
[2020-09-10] MEDS ORDERED: KETOROLAC 30 MG/1 ML IM ONE (15:00)
[2020-09-10 15:13] LABS: BASOPHILS % (AUTO) 1 % (0-1); EOSINOPHILS % (AUTO) 4 % (1-7); LYMPHOCYTES % (AUTO) 28 % (22-44); MEAN CORPUSCULAR HEMOGLOBIN 30.2 pg (27.0-34.8); MEAN PLATELET VOLUME 10.4 fL (7.4-10.4); MONOCYTES % (AUTO) 7 % (2-9); NEUTROPHILS % (AUTO) 61 % (42-75); PLATELET COUNT 177 x10^3/uL (130-400); RED BLOOD COUNT 4.34 x10^6/uL (3.82-5.3); RED CELL DISTRIBUTION WIDTH 14.4 % (9.6-15.2)
[2020-09-10 15:14] LABS: ALBUMIN 3.3 g/dL (3.4-5.0); ANION GAP 3 mmol/L (5-15); CALCIUM 8.5 mg/dL (8.5-10.1); CHLORIDE 108 mmol/L (98-107); MD NO
[2020-09-10 15:17] LABS: ALANINE AMINOTRANSFERASE 17 U/L (12-78); ALKALINE PHOSPHATASE 76 U/L (45-117); BILIRUBIN,TOTAL 0.4 mg/dL (0.2-1.0); CREATININE 0.64 mg/dL (0.55-1.02); TOTAL PROTEIN 7.1 g/dL (6.4-8.2)
--- NOTE | 2020-09-10 15:30 | NUR ---
BLADDER SCAN COMPLETE WITH 458ML NOTED. MD NOTIFIED. STRAIGHT CATH AND DRAIN PER MD
--- NOTE | 2020-09-10 15:44 | NUR ---
PT COMES IN C/O RIGHT FLANK PAIN AND INABILITY TO URNITATE. STATES 7/10 RIGHT FLANK PAIN. MONITORS CONNECTED. VSS. NAD. WILL CONTINUE TO MONITOR
--- NOTE | 2020-09-10 15:46 | NUR ---
STRAIGHT CATH COMPLETE. SAMPLE SENT TO LAB
[2020-09-10 15:55] LABS: MICROSCOPIC INDICATED
--- NOTE | 2020-09-10 16:39 | NUR ---
CT CONTACTED REGARDING REPORT. PER NISHI IN CT, CAT SCAN HAS BEEN READ BUT NO SHOWING IN MEDITECH. SHE WILL FOLLOW-UP
[2020-09-10] MEDS ORDERED: CYCLOBENZAPRINE 10 MG TABLET ONE (16:59)
[2020-09-10] MEDS ORDERED: HYDROcodone/APAP 5/325 TABLET ONE (17:00)
[2020-09-10] MEDS ORDERED: CYCLOBENZAPRINE 10 MG TABLET PO ONE (17:00)
[2020-09-10] MEDS ORDERED: HYDROcodone/APAP 5/325 TABLET PO ONE (17:00)
[2020-09-10 17:04] VITALS: BP 146/90
--- NOTE | 2020-09-10 17:04 | NUR ---
MD AT BEDSIDE TO DISCUSS RESULTS. ORDERED MEDICATIONS ADMIN. VSS. NAD. WILL CONTINUE TO MONITOR
--- NOTE | 2020-09-10 17:43 | NUR ---
PT TO DISCHARGE WITH STEADY GAIT. PT ENCOURAGED TO FOLLOW-UP DISCUSSED. PT ENCOURAGED TO RETURN TO ED WITH WORSENING OF SX OR CHANGES IN CONDITION.
== END 2020-09-10 17:47 | disposition home or self-care (01) ==
LOC: ED 15:55
DX: M54.5 Low back pain (principal); M54.6 Pain in thoracic spine; R39.11 Hesitancy of micturition; I10 Essential (primary) hypertension; Z87.442 Personal history of urinary calculi
CPT/HCPCS: 36415; 74176; 80053; 81001; 85025; 96372; 99285; J1885

== ENCOUNTER 2020-09-15 10:45 | Emergency (ER) | payer MEDICAID ==
[~2020-09-15] VITALS: Ht 162.6 cm; Wt 110.0 kg
[2020-09-15 12:14] VITALS: BP 124/96
== END 2020-09-15 12:15 ==
LOC: ED 11:25
DX: S80.02XA Contusion of left knee, initial encounter (principal); S20.213A Contusion of bilateral front wall of thorax, initial encounter; I10 Essential (primary) hypertension; E78.5 Hyperlipidemia, unspecified; W01.0XXA Fall on same level from slipping, tripping and stumbling without subsequent striking against object, initial encounter; Y93.89 Activity, other specified; Y92.098 Other place in other non-institutional residence as the place of occurrence of the external cause; Y99.8 Other external cause status
CPT/HCPCS: 71045; 99284

== ENCOUNTER → 2020-10-09 | Outpatient (CLI) | payer MEDICAID ==
[~2020-10-09] MED LIST changes: +HYDR-1067 PO; -HYDR-3240 PO; -OXYC-302 PO; +OXYC1TAB14 PO
== END | disposition home or self-care (01) ==
LOC: STAR 15:34
PROVIDERS: ATTEND Family Medicine
DX: Z20.822 Contact with and (suspected) exposure to COVID-19 (principal)
CPT/HCPCS: 87635

== ENCOUNTER 2020-10-13 11:14 | Outpatient (CLI) | payer MEDICAID ==
[~2020-10-13] VITALS: Ht 162.6 cm; Wt 105.8 kg
[~2020-10-13 11:14] MED LIST changes: -LISI40TA PO; +LISI40TA9 PO
[2020-10-13] MEDS ORDERED: ESZO3TAB28 PO (12:20)
[2020-10-13] MEDS ORDERED: VIT B12 PO (12:20)
[2020-10-13] MEDS ORDERED: ATOR20TA37 PO (12:20)
[2020-10-13] MEDS ORDERED: vit D PO (12:20)
[2020-10-13] MEDS ORDERED: [UNRECOGNIZED DRUG - CODE] PO (12:20)
[2020-10-13] MEDS ORDERED: CHLORHEXIDINE 15 ML UDC ONE (12:22)
[2020-10-13] MEDS ORDERED: LACTATED RINGERS 1,000 ML IV SCH (12:30)
[2020-10-13] MEDS ORDERED: CHLORHEXIDINE 15 ML UDC MM ONE (12:30)
[2020-10-13 12:40] VITALS: BP 133/90
[2020-10-13] MEDS ORDERED: PROPOFOL 10 MG/ML, 20ML ONE (14:20)
[2020-10-13] MEDS ORDERED: DEXAMETHASONE 4 MG/ML, 1ML ONE (14:20)
[2020-10-13] MEDS ORDERED: SUCCINYLCHOLINE 20 MG/ML, 10ML ONE (14:20)
[2020-10-13] MEDS ORDERED: ONDANSETRON 2MG/ML, 2ML ONE (14:20)
[2020-10-13] MEDS ORDERED: MIDAZOLAM 1 MG/ML, 2ML ONE ×3 (14:25→14:32)
[2020-10-13] MEDS ORDERED: FENTANYL PF 100 MCG/2ML ONE ×3 (14:29→14:39)
== END 2020-10-13 16:10 | disposition home or self-care (01) ==
LOC: OUT 11:14
PROVIDERS: ATTEND Nurse Practitioner
DX: M54.16 Radiculopathy, lumbar region (principal); M48.061 Spinal stenosis, lumbar region without neurogenic claudication; D18.09 Hemangioma of other sites; N83.292 Other ovarian cyst, left side; G43.909 Migraine, unspecified, not intractable, without status migrainosus; M19.90 Unspecified osteoarthritis, unspecified site; Z88.8 Allergy status to other drugs, medicaments and biological substances; Z20.822 Contact with and (suspected) exposure to COVID-19; Z98.84 Bariatric surgery status; Z98.890 Other specified postprocedural states; Z79.899 Other long term (current) drug therapy; Z82.49 Family history of ischemic heart disease and other diseases of the circulatory system; Z83.3 Family history of diabetes mellitus
CPT/HCPCS: 72110; 72148; 87635; J0330; J1100; J2250; J2405; J2704; J3010; J7120

== ENCOUNTER 2020-10-14 09:04 | Emergency (ER) | payer MEDICAID ==
[~2020-10-14] VITALS: Ht 162.6 cm; Wt 100.6 kg
[~2020-10-14 09:04] MED LIST changes: +ATOR20TA37 PO; +LISI40TA PO; -LISI40TA9 PO; +VIT B12 PO; +[UNRECOGNIZED DRUG - CODE] PO; +vit D PO
--- NOTE | 2020-10-14 09:12 | NUR ---
triage: patient arrives to er with all over abdominal pain that began last Friday. She has no n/v. Hx: gastric sleeve 2017 and gastric bypass 2019, and multiple hernia repairs.
--- NOTE | 2020-10-14 09:23 | NUR ---
PT IS A 40F COMPLAINING OF DIFFUSE ABDOMINAL PAIN AFTER A FALL 10/02/20. SHE'S ALSO HAD RECENT HERNIA SURGERY REPAIR AT [facility]. HX OF GASTRIC SLEEVE AND GASTRIC BYPASS. PROVIDER AT BEDSIDE FOR EVAL. CONTINUOUS SP02 AND CYCLING VITALS IN PLACE. CALL LIGHT WITHIN REACH.
[2020-10-14] MEDS ORDERED: SODIUM CHLORIDE FLUSH 10ML SYR IVF ONE (09:30)
[2020-10-14] MEDS ORDERED: FAMOTIDINE 20 MG/2 ML IVPush ONE (09:30)
[2020-10-14] MEDS ORDERED: ONDANSETRON 2MG/ML, 2ML IVPush ONE (09:30)
[2020-10-14] MEDS ORDERED: MORPHINE SULFATE 4 MG/ML, 1ML ONE ×2 (09:34→10:23)
[2020-10-14] MEDS ORDERED: ONDANSETRON 2MG/ML, 2ML ONE (09:34)
[2020-10-14] MEDS ORDERED: FAMOTIDINE 20 MG/2 ML ONE (09:35)
[2020-10-14] MEDS: MORPHINE SULFATE 4 MG/ML, 1ML IVPush PRN ×2 (09:49→10:25)
[2020-10-14 09:56] LABS: BASOPHILS % (AUTO) 0 % (0-1); EOSINOPHILS % (AUTO) 0 % (1-7); LYMPHOCYTES % (AUTO) 12 % (22-44); MEAN CORPUSCULAR HEMOGLOBIN 30.3 pg (27.0-34.8); MEAN CORPUSCULAR HGB CONC 33.4 g/dL (32.4-35.8); MEAN PLATELET VOLUME 9.9 fL (7.4-10.4); MONOCYTES % (AUTO) 5 % (2-9); NEUTROPHILS % (AUTO) 83 % (42-75); PLATELET COUNT 178 x10^3/uL (130-400); RED BLOOD COUNT 4.36 x10^6/uL (3.82-5.3); RED CELL DISTRIBUTION WIDTH 14.6 % (9.6-15.2)
[2020-10-14 09:58] LABS: MD NO
--- NOTE | 2020-10-14 09:58 | NUR ---
MEDICATED PT PER EMAR, PT RESTING COMFORTABLY ON GURNEY WITH WARM BLANKETS ON HER CELL PHONE. PT WAS GIVEN PO CONTRAST FOR CT. CALL LIGHT WITHIN REACH. NO FURTHER NEEDS AT THIS TIME.
[2020-10-14 10:03] LABS: ALANINE AMINOTRANSFERASE 15 U/L (12-78); ALBUMIN 3.4 g/dL (3.4-5.0); ANION GAP 6 mmol/L (5-15); CALCIUM 8.5 mg/dL (8.5-10.1); CHLORIDE 108 mmol/L (98-107); CREATININE 0.66 mg/dL (0.55-1.02)
[2020-10-14 10:08] LABS: ALKALINE PHOSPHATASE 74 U/L (45-117); BILIRUBIN,TOTAL 0.5 mg/dL (0.2-1.0); TOTAL PROTEIN 7.2 g/dL (6.4-8.2)
--- NOTE | 2020-10-14 10:21 | NUR ---
PT STATES MORPHINE DID NOT HELP VERY MUCH. SHE IS STILL COMPLAINING OF 9/10 ABDOMINAL PAIN. WILL GIVE 2ND DOSE OF MORPHINE PER ORDERS AND REASSESS. CALL LIGHT WITHIN REACH.
--- NOTE | 2020-10-14 10:39 | NUR ---
medicated per emar and advised pt to try to take small sips of oral contrast as much as possible for a good study.
[2020-10-14] MEDS ORDERED: OMNIPAQUE 350 MG/ML, 100ML BOTTLE ONE (11:00)
--- NOTE | 2020-10-14 11:02 | NUR ---
pt to ct
--- NOTE | 2020-10-14 11:26 | NUR ---
pt back from ct, ambulated to the restroom but still complaining of abdominal pain. will notify md for additonal pain med request. call light within reach.
[2020-10-14] MEDS ORDERED: HYDROmorphone 2 MG/ML, 1ML IVPush PRN (11:30)
[2020-10-14] MEDS ORDERED: HYDROmorphone 1 MG/ML, 1ML INJ ONE (11:31)
[2020-10-14 13:12] VITALS: BP 118/65
--- NOTE | 2020-10-14 13:15 | NUR ---
Patient/Caregiver given discharge instructions and they have confirmed that they understand the instructions. Patient ambulatory with steady gait.
== END 2020-10-14 13:28 | disposition home or self-care (01) ==
LOC: ED 10:06
DX: K27.3 Acute peptic ulcer, site unspecified, without hemorrhage or perforation (principal); R10.9 Unspecified abdominal pain; R11.0 Nausea; I10 Essential (primary) hypertension; K21.9 Gastro-esophageal reflux disease without esophagitis
CPT/HCPCS: 36415; 74177; 80053; 83690; 84703; 85025; 96374; 96375; 96376; 99285; J1170; J2270; J2405; Q9967

== ENCOUNTER → 2020-10-17 | Outpatient (CLI) | payer MEDICAID ==
[~2020-10-17] MED LIST changes: -LISI40TA PO; +LISI40TA9 PO
== END | disposition home or self-care (01) ==
LOC: RAD 13:12
PROVIDERS: ATTEND Surgery
DX: R10.13 Epigastric pain (principal); R13.10 Dysphagia, unspecified; K31.89 Other diseases of stomach and duodenum; Z98.84 Bariatric surgery status
CPT/HCPCS: 74240

== ENCOUNTER 2020-10-24 09:13 | Emergency (ER) | payer MEDICAID ==
[~2020-10-24] VITALS: Ht 162.6 cm; Wt 107.5 kg
--- NOTE | 2020-10-24 09:52 | NUR ---
PT C/O OF ALL QUADRANT ABD PAIN AND N/V FOR 2 WEEKS. PT DENIES CP, SOB, OR DIARRHEA. PT SAW HER GASTRIC SLEEVE SURGEON A WEEK AGO AND SHE WAS TOLD SHE MIGHT HAVE A BLEEDING ULCER. PT IS SCHEDULED FOR AN UPPER GI SCOPE NEXT MONTH AT [facility].
[2020-10-24] MEDS ORDERED: SODIUM CHLORIDE 0.9% 1,000 ML IV ONE (10:00)
[2020-10-24] MEDS ORDERED: SODIUM CHLORIDE FLUSH 10ML SYR IVF ONE (10:00)
[2020-10-24] MEDS ORDERED: ONDANSETRON 2MG/ML, 2ML IVPush ONE (10:00)
[2020-10-24 10:02] LABS: BASOPHILS % (AUTO) 1 % (0-1); EOSINOPHILS % (AUTO) 2 % (1-7); LYMPHOCYTES % (AUTO) 22 % (22-44); MEAN CORPUSCULAR HEMOGLOBIN 30.6 pg (27.0-34.8); MEAN CORPUSCULAR HGB CONC 33.7 g/dL (32.4-35.8); MEAN PLATELET VOLUME 9.9 fL (7.4-10.4); MONOCYTES % (AUTO) 6 % (2-9); NEUTROPHILS % (AUTO) 69 % (42-75); PLATELET COUNT 167 x10^3/uL (130-400); RED BLOOD COUNT 4.09 x10^6/uL (3.82-5.3); RED CELL DISTRIBUTION WIDTH 14.6 % (9.6-15.2)
[2020-10-24 10:03] LABS: MD NO
[2020-10-24 10:13] LABS: ALANINE AMINOTRANSFERASE 16 U/L (12-78); ALBUMIN 2.9 g/dL (3.4-5.0); ANION GAP 2 mmol/L (5-15); CALCIUM 8.2 mg/dL (8.5-10.1); CHLORIDE 110 mmol/L (98-107); CREATININE 0.58 mg/dL (0.55-1.02)
[2020-10-24 10:15] LABS: ALKALINE PHOSPHATASE 72 U/L (45-117); BILIRUBIN,TOTAL 0.4 mg/dL (0.2-1.0); TOTAL PROTEIN 6.4 g/dL (6.4-8.2)
[2020-10-24] MEDS ORDERED: ONDANSETRON 2MG/ML, 2ML ONE (10:15)
[2020-10-24] MEDS ORDERED: MORPHINE SULFATE 4 MG/ML, 1ML ONE ×2 (10:16→11:41)
[2020-10-24] MEDS: MORPHINE SULFATE 4 MG/ML, 1ML IVPush PRN ×2 (10:31→11:45)
[2020-10-24 10:53] LABS: MICROSCOPIC INDICATED
--- NOTE | 2020-10-24 12:04 | NUR ---
PO CHALLENGE INITIATED PER DR CALDERON
[2020-10-24] MEDS ORDERED: MAALOX/HYOSCYAMINE/LIDOCAINE 45 ML BTL PO ONE (12:30)
[2020-10-24] MEDS ORDERED: MAALOX/HYOSCYAMINE/LIDOCAINE 45 ML BTL ONE (12:31)
[2020-10-24 12:46] VITALS: BP 153/78
--- NOTE | 2020-10-24 12:47 | NUR ---
PT REC'VD DISCHARGE INSTRUCTIONS AND EDUCATION. PT HAD NO FURTHER QUESTIONS. PT AMBULATED TO DC AREA, STEADY GAIT.
== END 2020-10-24 13:00 | disposition home or self-care (01) ==
LOC: ED 10:21
DX: R10.84 Generalized abdominal pain (principal); R10.13 Epigastric pain; R11.2 Nausea with vomiting, unspecified; Z90.89 Acquired absence of other organs; Z90.49 Acquired absence of other specified parts of digestive tract; Z90.710 Acquired absence of both cervix and uterus
CPT/HCPCS: 36415; 80053; 81001; 83690; 85025; 87086; 96361; 96374; 96375; 96376; 99284; J2270; J2405; J7030

== ENCOUNTER → 2021-01-17 | Outpatient (CLI) | payer MEDICAID ==
[~2021-01-17] MED LIST changes: -HYDR-1067 PO; +HYDR-2214 PO; +OMNIPAQUE 350 MG/ML, 150 ML BOTTLE ONE; +SULF-23 PO; -SULF1TAB24 PO
== END | disposition home or self-care (01) ==
LOC: CFH 14:15
PROVIDERS: ATTEND Physician Assistant
DX: R31.0 Gross hematuria (principal)
CPT/HCPCS: 74178; Q9967

== ENCOUNTER → 2021-02-20 | Outpatient (CLI) | payer MEDICAID ==
[~2021-02-20] MED LIST changes: -OMEP40CA42 PO; +OMEP40CA8 PO; +OMNIPAQUE 350 MG/ML, 100ML BOTTLE ONE; -OMNIPAQUE 350 MG/ML, 150 ML BOTTLE ONE
== END | disposition home or self-care (01) ==
LOC: CFH 08:51
PROVIDERS: ATTEND Surgery
DX: K43.9 Ventral hernia without obstruction or gangrene (principal); M62.08 Separation of muscle (nontraumatic), other site
CPT/HCPCS: 74177; Q9967